=== PATIENT | female | born 1970 | race Two or more races ===

== ENCOUNTER 2018-03-17 20:00 | Emergency (ER) | payer OTHER ==
[~2018-03-17] VITALS: Ht 172.7 cm; Wt 86.2 kg
[2018-03-17 21:25] LABS: Basophils # (auto) 0 uL; Basophils % (auto) 0.4 % (0.0-2.0); Eosinophils # (auto) 0.1 uL; Eosinophils % (auto) 1.3 % (0.0-7.0); Hematocrit 33.9 % (36.0-46.0); Hemoglobin 11.1 g/dL (12.2-16.2); Lymphocytes # (auto) 1.8 uL; Lymphocytes % (auto) 25.5 % (10.0-50.0); Mean Corpuscular Hemoglobin 27.2 pg (28.0-32.0); Mean Corpuscular Hgb Conc. 32.7 g/dL (32.0-36.0); Mean Corpuscular Volume 83.3 fL (80.0-100.0); Monocytes # (auto) 0.5 uL; Monocytes % (auto) 7.4 % (0.0-12.0); Neutrophils # (auto) 4.5 uL; Neutrophils % (auto) 65.4 % (37.0-80.0); Platelet Count (auto) 390 10^3/uL (140-450); Red Blood Cells 4.07 10^6/uL (4.0-5.20); Red Cell Distribution Width 14.5 % (11.8-14.3); White Blood Cell 6.9 10^3/uL (4.4-10.8)
[2018-03-17 21:33] LABS: Alanine Aminotransferase 18 U/L (13-56); Albumin 3.4 g/dL (3.4-5.0); Anion Gap 5 (5-15); Aspartate Aminotransferase 14 U/L (15-37); BUN/Creatinine Ratio 34.9; Blood Urea Nitrogen 15 mg/dL (7-18); Calcium 8.2 mg/dL (8.5-10.1); Carbon Dioxide 28 mmol/L (21-32); Chloride 105 mmol/L (98-107); Glucose 110 mg/dL (74-106); Potassium 3.4 mmol/L (3.5-5.1); Sodium 138 mmol/L (136-145)
[2018-03-17 21:38] LABS: Alkaline Phosphatase 86 U/L (45-117); Bilirubin, Total 0.2 mg/dL (0.2-1.0); GFR African American > 60 mL/min; GFR Non-African American > 60 mL/min; Total Protein 7.4 g/dL (6.4-8.2)
[2018-03-17 23:18] LABS: Urine Bacteria FEW /hpf (None Seen); Urine Blood TRACE /uL (Negative); Urine Mucus FEW (None Seen); Urine Specific Gravity 1.006 (1.001-1.035); Urine WBC <1 /hpf (0 - 5)
[2018-03-17] MEDS ORDERED: ASPirin 81 mg TAB PO ONE (23:45)
[2018-03-18 00:16] LABS: INR 0.93 (0.9-1.15); Partial Thromboplastin Time 28.8 sec (23.78-33.04)
[2018-03-18 03:53] VITALS: BP 113/62
== END 2018-03-18 05:07 | disposition home or self-care (01) ==
LOC: EDBD 20:00 → ER 20:03
DX: R07.9 Chest pain, unspecified (principal); F41.9 Anxiety disorder, unspecified; M54.2 Cervicalgia; G45.9 Transient cerebral ischemic attack, unspecified; E87.6 Hypokalemia; R73.9 Hyperglycemia, unspecified; Z90.49 Acquired absence of other specified parts of digestive tract
CPT/HCPCS: 36415; 71045; 80053; 81001; 81025; 82550; 83735; 84443; 84484; 85025; 85379; 85610; 85730; 93005